=== PATIENT | male | born 1985 | race Caucasian/White ===

== ENCOUNTER 2019-02-28 19:35 | Emergency (ER) | payer MEDICAID, OTHER ==
[~2019-02-28] VITALS: Ht 182.9 cm; Wt 73.8 kg
[2019-02-28 21:05] VITALS: BP 139/101
== END 2019-02-28 21:40 | disposition home or self-care (01) ==
LOC: ED 20:44
DX: F10.220 Alcohol dependence with intoxication, uncomplicated (principal); Y90.0 Blood alcohol level of less than 20 mg/100 ml; E86.0 Dehydration
CPT/HCPCS: 36415; 80053; 80307; 82140; 85025; 93005; 96360; 99284; J7030

== ENCOUNTER 2020-05-16 19:08 | Emergency (ER) | payer MEDICAID, OTHER ==
[~2020-05-16] VITALS: Ht 182.9 cm; Wt 81.8 kg
[2020-05-16] MEDS ORDERED: LORazepam 2 MG/ML, 1ML ONE (19:28)
[2020-05-16] MEDS ORDERED: LORazepam 2 MG/ML, 1ML IVPush ONE (19:30)
[2020-05-16] MEDS ORDERED: SODIUM CHLORIDE 0.9% 1,000ML IVBOLUS ONE (19:30)
[2020-05-16] MEDS ORDERED: ONDANSETRON 2MG/ML, 2ML IVPush ONE (19:30)
[2020-05-16] MEDS ORDERED: ONDANSETRON 2MG/ML, 2ML ONE (19:30)
[2020-05-16 19:33] LABS: BASOPHILS % (AUTO) 1 % (0-1); EOSINOPHILS % (AUTO) 0 % (1-7); LYMPHOCYTES % (AUTO) 37 % (22-44); MD NO; MEAN CORPUSCULAR HGB CONC 34.3 g/dL (33.2-36.2); MEAN PLATELET VOLUME 7.5 fL (7.4-10.4); MONOCYTES % (AUTO) 7 % (2-9); NEUTROPHILS % (AUTO) 56 % (42-75); PLATELET COUNT 263 x10^3/uL (130-400); RED BLOOD COUNT 5.84 x10^6/uL (4.38-5.82); RED CELL DISTRIBUTION WIDTH 12.9 % (9.4-14.8)
[2020-05-16 19:41] LABS: ALANINE AMINOTRANSFERASE 32 U/L (12-78); ALBUMIN 4.5 g/dL (3.4-5.0); ANION GAP 9 mmol/L (5-15); CALCIUM 8.7 mg/dL (8.5-10.1); CHLORIDE 111 mmol/L (98-107); CREATININE 0.93 mg/dL (0.7-1.3)
--- NOTE | 2020-05-16 19:45 | NUR ---
PT. C/O PAIN TO IV PLACED BY [facility] IN LEFT HAND. IV NOT FLUSHING. NEW IV ESTABLIHSED AND LEFT HAND IV D/C'ED WITH TIP INTACT. IVF INFUSING. MEDICATED PER MAR. PT. WAS AMBULATORY WITH STEADY GAIT INTO ED ROOM 7 ON ARRIVAL. EKG DONE AND PRESENTED TO ERMD. MACHINE BOBBIN WINDER IN PLACE ALONG WITH SPO2 AND B/P. PT. ATTEMPTING URINE SAMPLE.
[2020-05-16 19:46] LABS: ALKALINE PHOSPHATASE 88 U/L (45-117); BILIRUBIN,TOTAL 0.4 mg/dL (0.2-1.0); TOTAL PROTEIN 8.5 g/dL (6.4-8.2)
--- NOTE | 2020-05-16 20:02 | NUR ---
URINE COLLECTED AND SENT TO LAB. DR. MEANS IN TO EVAL PT. AND DISCUSS POC. PT. ON ALL MONITORS AND PROVIDED WITH EXPLANATION OF IMPORTANCE OF KEEPING ALL MONIOTRS IN PLACE. PT. VERBALZIED UNDERSTANDING. CALL LIGHT IN REACH AND ALL SAFEY MEASURES OBSERVED. PT. EXPRESSING ANXIETY; VERBAL ASSURANCE PROVIDED.
--- NOTE | 2020-05-16 20:32 | NUR ---
PT. STATES "I AM HAVING ANXIETY LIKE A MOTHER FUCKER. I DON'T FEEL GOOD." PT. DENEIS ANY NAUSEA OR OTHER SPECIFIC SYMPTOMS. "JUST ANXIOUS". IVF COMPLETED. URINE PROCESSING. WILL DISCUSS PLAN WITH ERP.
[2020-05-16 20:42] LABS: AMPHETAMINE SCREEN, URINE Negative (Negative); BARBITURATE SCREEN, URINE Negative (Negative); BENZODIAZEPINE SCREEN, URINE Negative (Negative); CANNABINOID SCREEN, URINE Negative (Negative); COCAINE SCREEN, URINE Negative (Negative); METHADONE SCREEN, URINE Negative (Negative); OPIATE SCREEN, URINE Negative (Negative)
--- NOTE | 2020-05-16 21:15 | NUR ---
UPON ENTERING ROOM TO ANSWER PT. CALL LIGHT PT. HAD REMOVED ALL MONITORS AND RAC PIV. TIP IS INTACT ON IV. BLEEDING CONTROLLED. PT. REQUESTING "SOMETHING FOR THE ANXIETY". THIS REQUEST HAD ALREADY BEEN REPORTED TO PROVIDER EARLIER AND BEEN DISCUSSED WITH PT. ON MULTIPLE ENCOUNTERS THAT HE WOULD NOT BE RECEIVING ANY MORE MEDS. PT. FULLY DRESSED AT THIS TIME. AWAITING DISPO.
[2020-05-16 21:29] VITALS: BP 138/89
== END 2020-05-16 21:49 | disposition home or self-care (01) ==
LOC: ED 21:00
DX: F10.220 Alcohol dependence with intoxication, uncomplicated (principal); R00.0 Tachycardia, unspecified; R11.10 Vomiting, unspecified; Y90.0 Blood alcohol level of less than 20 mg/100 ml
CPT/HCPCS: 36415; 80053; 80307; 85025; 93005; 96361; 96374; 99284; J2060; J7030